=== PATIENT | female | born 1985 | race African-American/Black ===

== ENCOUNTER 2017-07-11 19:39 | Emergency (ER) | payer OTHER ==
[~2017-07-11] VITALS: Ht 177.8 cm; Wt 84.0 kg
[~2017-07-11 19:39] MED LIST: BIRTH CONTROL
[2017-07-11 22:48] VITALS: BP 120/91
== END 2017-07-11 22:50 | disposition home or self-care (01) ==
LOC: ER 20:43
DX: J02.9 Acute pharyngitis, unspecified (principal)
CPT/HCPCS: 99283